=== PATIENT | male | born 1980 | race Caucasian/White ===

== ENCOUNTER 2016-10-01 18:48 | Emergency (ER) | payer MEDICAID ==
--- NOTE | 2016-10-01 19:17 | Emergency Department Record ---
History of Present Illness - General Chief Complaint: Cough Stated Complaint: FATIGUE,SINUS/CHEST CONGESTION,COUGH Time Seen by Provider: 10/01/16 19:14 Source: Patient Mode of Arrival: Ambulatory Limitations: No limitations - History of Present Illness Initial Comments: 35 yo male presents to ED with a CC of sinus congestion and cough symptoms 2 weeks ago, resolved, but then worsened last night. Patient reports finishing Zithromax 1.5 weeks ago, started having cough and body aches last night associated with sinus congestion symptoms. Patient denies health problems at his baseline. MD Complaint: Cough, Nasal congestion Onset/Timin -: Week(s) Severity: Mild Quality: Aching Consistency: Other Improves With: Nothing Worsens With: Nothing Context: Sick contacts Associated Symptoms: Cough, Sore throat Treatments Prior to Arrival: Antibiotics - Related Data Previous Rx's Medication Instructions Recorded Oseltamivir Phosphate [Tamiflu] 75 mg PO BID #10 capsule 10/01/16 Allergies Allergy/AdvReac Type Severity Reaction Status Date / Time No Known Drug Allergies Allergy Unverified 09/13/16 08:21 Travel Screening - Travel/Exposure Within Last 30 Days Have you traveled within the last 30 days?: No - Travel/Exposure Within Last Year Have you traveled outside the [place] in the last year?: No - Additonal Travel Details Have you been exposed to anyone with a communicable illness?: No - Travel Symptoms Symptom Screening: None Review of Systems Constitutional: Reports: Fever. Denies: Chills, Malaise, Night sweats Eyes: Denies: Eye discharge, Eye pain ENT: Reports: Congestion, Throat pain. Denies: Ear pain, Epistaxis Respiratory: Reports: Cough. Denies: Dyspnea Cardiovascular: Denies: Chest pain, Dyspnea on exertion Endocrine: Denies: Fatigue, Heat or cold intolerance Gastrointestinal: Denies: Nausea, Vomiting Genitourinary: Denies: Incontinence, Retention Musculoskeletal: Denies: Arthralgia, Back pain Skin: Denies: Bruising Neurological: Denies: Abnormal gait, Confusion, Seizure Psychiatric: Denies: Anxiety Hematological/Lymphatic: Denies: Anemia, Blood Clots Past Medical History - SOCIAL HISTORY Smoking Status: Never smoker Alcohol Use: None Drug Use: None - RESPIRATORY Hx Respiratory Disorders: No - CARDIOVASCULAR Hx Cardio Disorders: No - NEURO Hx Neuro Disorders: No - GI Hx GI Disorders: No - Hx Genitourinary Disorders: No - ENDOCRINE Hx Endocrine Disorders: No - MUSCULOSKELETAL Hx Musculoskeletal Disorders: No - PSYCH Hx Psych Problems: No - HEMATOLOGY/ONCOLOGY Hx Hematology/Oncology Disorders: No Family Medical History Any Significant Family History?: No Physical Exam - General General Appearance: Alert, Oriented x3, Cooperative, No acute distress Limitations: No limitations - Head Head exam: Atraumatic, Normocephalic, Normal inspection Head exam detail: negative: Abrasion, Contusion, Sinclair's sign, General tenderness, Hematoma, Laceration - Eye Eye exam: Normal appearance. negative: Conjunctival injection, Periorbital swelling, Periorbital tenderness, Scleral icterus - ENT Ear exam: negative: Auricular hematoma, Auricular trauma Nasal Exam: negative: Discharge, Dried blood, Foreign body Mouth exam: negative: Drooling, Laceration, Muffled voice, Tongue elevation Throat exam: Tonsillar erythema. negative: Tonsillomegaly, Tonsillar exudate, R peritonsillar mass, L peritonsillar mass - Neck Neck exam: Normal inspection. negative: Meningismus, Tenderness - Respiratory Respiratory exam: Normal lung sounds bilaterally. negative: Rales, Respiratory distress, Rhonchi, Stridor - Cardiovascular Cardiovascular Exam: Normal rhythm, Normal heart sounds, Tachycardia - GI/Abdominal GI/Abdominal exam: Soft - Rectal Rectal exam: Deferred - exam: Deferred - Extremities Extremities exam: Normal inspection. negative: Pedal edema, Tenderness - Back Back exam: Denies: CVA tenderness (R), CVA tenderness (L) - Neurological Neurological exam: Alert, Normal gait, Oriented X3 - Psychiatric Psychiatric exam: Normal affect, Normal mood - Skin Skin exam: Normal color. negative: Abrasion Type of lesion: negative: abrasion Course Vital Signs 10/01/16 19:01 Temperature 99.9 F H Pulse Rate 125 H Respiratory 20 Rate Blood Pressure 137/78 Pulse Ox 98 - Reevaluation(s) Reevaluation #1: 10/01/16 19:41 Patient is positive for influenza B, will initiate Tamiflu with instructions for follow-up in 3-5 days with patient's PCP. Disposition Disposition: Discharge Clinical Impression: Influenza Disposition: Home, Self-Care Condition: (2) Stable Instructions: Influenza (ED) Additional Instructions: Return to ED if your symptoms worsen or if you have any concerns. Tamilflu as directed. Follow-up with your family doctor in 3-5 days as directed. Prescriptions: Oseltamivir Phosphate [Tamiflu] 75 mg PO BID #10 capsule Forms: Patient Portal Access Time of Disposition: 19:42
[2016-10-01 19:33] LABS: INFLUENZA A NEGATIVE (NEGATIVE); INFLUENZA B POSITIVE (NEGATIVE)
[2016-10-01] MEDS ORDERED: OSTELTAMIVIR 75 MG CAP PO ONE (19:42)
== END 2016-10-01 19:59 | disposition home or self-care (01) ==
LOC: ER 18:48
DX: J10.1 Influenza due to other identified influenza virus with other respiratory manifestations (principal)
CPT/HCPCS: 87400; 99282

== ENCOUNTER 2017-05-06 18:51 | Emergency (ER) | payer MEDICAID ==
[2017-05-06] MEDS ORDERED: ACETAMINOPHEN 325 MG TAB PO ONE (19:52)
[2017-05-06] MEDS ORDERED: 0.9 % SODIUM CHLORIDE 1,000 ML BAG IV ONE ×2 (19:52→21:01)
[2017-05-06] MEDS ORDERED: ONDANSETRON HCL IV 4 MG/2 ML VIAL IV ONE (19:52)
[2017-05-06 20:00] LABS: HEMATOCRIT 44.1 % (42.0-52.0); HEMOGLOBIN 16.3 gm/dl (14.0-18.0); MEAN CELL VOLUME 81.2 fl (81-97); MEAN PLATELET VOLUME 10.7 fl (7.4-10.4); PLATELET COUNT 196 K/uL (130-400); RED BLOOD COUNT 5.43 M/uL (4.40-5.70); RED CELL DISTRIBUTION WIDTH 12.3 % (11.5-14.5); WHITE BLOOD COUNT W/O DIFF 4.4 K/uL (4.2-12.2)
--- NOTE | 2017-05-06 20:09 | Emergency Department Record ---
History of Present Illness - General Chief complaint: Weakness Stated complaint: HEAT EXHAUSTION? Time Seen by Provider: 05/06/17 19:49 Source: Patient Mode of Arrival: Ambulatory Limitations: No limitations - History of Present Illness Initial comments: The patient is here due to multiple episodes of diarrhea over the last 36 hours. He states he has felt ill for about 2 days. It started 2 days ago after working in the heat all day but then yesterday he developed frequent loose watery stools. He had over 20 stools yesterday but only 2 today. The patient denies any abdominal pain or bleeding but he is having mild nausea. Today he only has had 2 loose watery stools. The patient denies any AVALOS or neck pain but does have mild nausea at times. 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 MD Complaint: Generalized weakness Onset/Timin -: Days(s) Associated Symptoms: Diaphoresis, Nausea/vomiting, Other (diarrhea.) - Dave Coma Scale Eye Response: (4) Open spontaneously Motor Response: (6) Obeys commands Verbal Response: (5) Oriented [place] Total: 15 - Related Data Previous Rx's Medication Instructions Recorded Oseltamivir Phosphate [Tamiflu] 75 mg PO BID #10 capsule 10/01/16 Nitazoxanide [Alinia] 500 mg PO BID #6 tablet 05/06/17 Ondansetron [Zofran Odt] 4 mg SL .Q4-6H PRN #12 tab.rapdis 05/06/17 Allergies Allergy/AdvReac Type Severity Reaction Status Date / Time No Known Drug Allergies Allergy Unverified 09/13/16 08:21 Travel Screening - Travel/Exposure Within Last 30 Days Have you traveled within the last 30 days?: No - Travel Symptoms Symptom Screening: Fever (GT 100.4), Headache, Weakness, Diarrhea Review of Systems Constitutional: Denies: Chills, Fever Eyes: Denies: Eye discharge ENT: Denies: Congestion, Dental pain Past Medical History - SOCIAL HISTORY Smoking Status: Never smoker Alcohol Use: None Drug Use: None - RESPIRATORY Hx Respiratory Disorders: No - CARDIOVASCULAR Hx Cardio Disorders: No - NEURO Hx Neuro Disorders: No - GI Hx GI Disorders: No - Hx Genitourinary Disorders: No - ENDOCRINE Hx Endocrine Disorders: No - MUSCULOSKELETAL Hx Musculoskeletal Disorders: No - PSYCH Hx Psych Problems: No - HEMATOLOGY/ONCOLOGY Hx Hematology/Oncology Disorders: No Family Medical History Any Significant Family History?: Yes Physical Exam - General General Appearance: Alert, Oriented x3, Cooperative, No acute distress - Head Head exam: Atraumatic, Normocephalic, Normal inspection - Eye Eye exam: Normal appearance, PERRL - ENT Throat exam: Normal inspection. negative: Tonsillar erythema, Tonsillar exudate - Neck Neck exam: Normal inspection, Full ROM. negative: Meningismus (The neck is very supple.), Tenderness - Respiratory Respiratory exam: Normal lung sounds bilaterally. negative: Respiratory distress - Cardiovascular Cardiovascular Exam: Regular rate, Normal rhythm, Normal heart sounds - GI/Abdominal GI/Abdominal exam: Soft, Normal bowel sounds. negative: Tenderness - Extremities Extremities exam: Normal inspection, Full ROM, Normal capillary refill. negative: Tenderness - Neurological Neurological exam: Alert, Normal gait. negative: Abnormal gait, Motor sensory deficit Course Vital Signs 05/06/17 19:34 Temperature 100.2 F H Pulse Rate 84 Respiratory 18 Rate Blood Pressure 136/81 Pulse Ox 98 - Reevaluation(s) Reevaluation #1: The patient is doing better. He denies any pain or discomfort and has had one stool here in the ER. He is feeling better after the 2 liters of IVF. 05/06/17 21:27 Reevaluation #2: The patient is doing much better at this time. I did discuss the positive Cryptosporidium infection with the patient and the need for F/U if not better in 3 days. 05/06/17 22:12 Medical Decision Making - Data Complexity MDM Data: Labs Ordered and/or Reviewed - Lab Data Result diagrams: 05/06/17 19:40 05/06/17 19:40 Lab Results 05/06/17 Range/Units 19:40 WBC 4.4 (4.2-12.2) K/uL RBC 5.43 (4.40-5.70) M/uL Hgb 16.3 (14.0-18.0) gm/dl Hct 44.1 (42.0-52.0) % MCV 81.2 (81-97) fl MCH 30.0 (27-33) pg MCHC 37.0 H (32-36) g/dl RDW 12.3 (11.5-14.5) % Plt Count 196 (130-400) K/uL MPV 10.7 H (7.4-10.4) fl Neutrophils % 80.0 (47-80) % Band Neutrophils % 0.0 (0-5) % Eosinophils % Not Reportable Basophils % Not Reportable Lymphocytes 15.0 L (16-45) % Monocytes 5.0 (0-9) % Basophils 0.0 (0-6) % Eosinophil Count 0.0 (0-6) % Disposition Disposition: Discharge Clinical Impression: Cryptosporidial gastroenteritis Disposition: Home, Self-Care Condition: (1) Good Instructions: Traveler's Diarrhea (ED) Additional Instructions: Please drink plenty of fluids and use the Zofran for nausea and use Tylenol for fever. Please take the Nitazoxanide as directed. Please see your PCP in 3 days if not better and return to the ER for any high fever, increased diarrhea, any abdominal pain or bleeding. Prescriptions: Nitazoxanide [Alinia] 500 mg PO BID #6 tablet Ondansetron [Zofran Odt] 4 mg SL .Q4-6H PRN #12 tab.rapdis PRN Reason: Nausea Forms: Patient Portal Access Time of Disposition: 22:16 Quality - Quality Measures Quality Measures: N/A - Blood Pressure Screening View Details: Yes Does Patient Have Any of the Following: No Blood Pressure Classification: Pre-Hypertensive BP Reading Systolic Measurement: 136 Diastolic Measurement: 81 Screening for High Blood Pressure: < Pre-Hypertensive BP, F/U Documented > [ G8950] Pre-Hypertensive Follow-up Interventions: Referral to alternative/primary care provider.
[2017-05-06 20:16] LABS: ALBUMIN 4.3 g/dL (4.0-5.0); ALKALINE PHOSPHATASE 54 U/L (40-129); ALT/SGPT 31 U/L (<41); AST/SGOT 53 U/L (10.0-50.0); BILIRUBIN,DIRECT 0.3 mg/dL (0-0.3); BLOOD UREA NITROGEN 12 mg/dL (6-20); EST GLOMERULAR FILTRATION RATE > 60 mL/min; GLUCOSE,RANDOM 110 mg/dL (74-109); TOTAL PROTEIN 6.9 g/dL (6.6-8.7)
[2017-05-06 21:01] LABS: URINE APPEARANCE CLEAR; URINE BILIRUBIN SMALL (NEGATIVE); URINE BLOOD NEGATIVE (NEGATIVE); URINE COLOR YELLOW; URINE GLUCOSE (UA) NEGATIVE (NEGATIVE); URINE KETONE TRACE (NEGATIVE); URINE LEUKOCYTE ESTERASE NEGATIVE (NEGATIVE); URINE NITRITE NEGATIVE (NEGATIVE)
[2017-05-06 22:02] LABS: CRYPTOSPORIDIUM PARVUM ANTIGEN DETECTED (NOT DETECT); GIARDIA LAMBLIA ANTIGEN NOT DETECTED (NOT DETECT)
== END 2017-05-06 22:25 | disposition home or self-care (01) ==
LOC: ER 18:51
DX: A07.2 Cryptosporidiosis (principal); R11.2 Nausea with vomiting, unspecified; R53.1 Weakness; R61 Generalized hyperhidrosis
CPT/HCPCS: 99284 ×2; 96374; 96361; 87329; 80076; 80048; 89055; 81003; 87427; 85027; J2405; J7030

== ENCOUNTER 2018-06-21 20:55 | Emergency (ER) | payer MEDICAID ==
--- NOTE | 2018-06-21 21:37 | Emergency Department Record ---
History of Present Illness - General Chief Complaint: Laceration(s) Stated Complaint: LACERATION ON LT THUMB Time Seen by Provider: 06/21/18 21:36 Source: Patient Mode of Arrival: Ambulatory - History of Present Illness Initial Commments: Pt right hand dominate with laceration with box knife to left thumb dorsal at home. Accidental. No numbness or weakness. Onset/Timin -: Minutes(s) Place: Home Context: Accidental, Sharp object use Associated Symptoms: None - Evans Coma Scale Eye Response: (4) Open spontaneously Motor Response: (6) Obeys commands Verbal Response: (5) Oriented Dave Total: 15 - Related Data Hx Tetanus Toxoid Vaccination: Yes Patient Tetanus UTD (within 5 yrs): Yes Home Medications Medication Instructions Recorded Confirmed Last Taken No Home Med [NO HOME MEDS] 06/21/18 06/21/18 Unknown Allergies Allergy/AdvReac Type Severity Reaction Status Date / Time No Known Drug Allergies Allergy Verified 06/21/18 21:02 Travel Screening - Travel/Exposure Within Last 30 Days Have you traveled within the last 30 days?: No - Travel/Exposure Within Last Year Have you traveled outside the [place] in the last year?: No - Additonal Travel Details Have you been exposed to anyone with a communicable illness?: No - Travel Symptoms Symptom Screening: None Review of Systems Constitutional: Denies: Chills, Fever Eyes: Denies: Eye discharge, Eye pain ENT: Denies: Congestion, Dental pain Respiratory: Denies: Cough, Hemoptysis Cardiovascular: Denies: Arrhythmia, Chest pain Endocrine: Denies: Fatigue Gastrointestinal: Denies: Abdominal pain Musculoskeletal: Denies: Arthralgia, Back pain Skin: Denies: Bruising Neurological: Denies: Abnormal gait Psychiatric: Denies: Anxiety Hematological/Lymphatic: Denies: Anemia Past Medical History - SOCIAL HISTORY Smoking Status: Never smoker Alcohol Use: None Drug Use: None - RESPIRATORY Hx Respiratory Disorders: No - CARDIOVASCULAR Hx Cardio Disorders: No - NEURO Hx Neuro Disorders: No - GI Hx GI Disorders: No - Hx Genitourinary Disorders: No - ENDOCRINE Hx Endocrine Disorders: No - MUSCULOSKELETAL Hx Musculoskeletal Disorders: No - PSYCH Hx Psych Problems: No - HEMATOLOGY/ONCOLOGY Hx Hematology/Oncology Disorders: No Family Medical History Any Significant Family History?: No Physical Exam - General General Appearance: Alert, Oriented x3, Cooperative - Head Head exam: Atraumatic - Eye Eye exam: Normal appearance - ENT ENT exam: Normal exam - Neck Neck exam: Normal inspection. negative: Tenderness - Respiratory Respiratory exam: Normal lung sounds bilaterally. negative: Wheezes - Cardiovascular Cardiovascular Exam: Regular rate, Normal rhythm. negative: Tachycardia Peripheral Pulses: 2+: Radial (R), Radial (L) - GI/Abdominal GI/Abdominal exam: Soft. negative: Tenderness - Extremities Image of Hand: 1 - 4 cm linear lac into deep sub cutaneous tissue without FB or tendon/nerve/ vascular injury. FULL ROM against resistance into flexion and extension. 2 pt sensation intact distally. - Back Back exam: Reports: Normal inspection - Neurological Neurological exam: Alert, Normal gait, Oriented X3. negative: Motor sensory deficit - Psychiatric Psychiatric exam: Normal affect, Normal mood - Skin Skin exam: Normal color. negative: Rash Course Vital Signs 06/21/18 21:02 Temperature 97.6 F Pulse Rate 67 Respiratory 12 Rate Blood Pressure 149/89 Pulse Ox 99 - Reevaluation(s) Reevaluation #1: 06/21/18 21:40 teatnus UTD sutured and home Disposition Disposition: Discharge Clinical Impression: Laceration of left thumb Disposition: Home, Self-Care Return To Work/School Note Provided: Yes Condition: (1) Good Additional Instructions: sutures out 10 days Forms: Patient Portal Access Time of Disposition: 21:37 Quality - Quality Measures Quality Measures: N/A - Blood Pressure Screening Does Patient Have Any of the Following: No Blood Pressure Classification: Pre-Hypertensive BP Reading Systolic Measurement: 149 Diastolic Measurement: 89 Screening for High Blood Pressure: < Pre-Hypertensive BP, F/U Documented > [ G8950] Pre-Hypertensive Follow-up Interventions: Follow-up with rescreen every year. Laceration - Other - Time Out Informed consent:: Informed consent obtained Confirmed first & last name, , procedure, correct site?: Yes Start Date:: 06/21/18 Start Time:: 21:41 - Location Location of laceration:: Left, Dorsal Laceration located on:: Finger (thumb) Laceration digit detail:: 1st Length of laceration:: 4 Length of laceration:: cm - Clean and Prep Laceration cleaning method:: Cleansed, Copious Irrigation Laceration cleaning agent:: Normal Saline - Local Anesthetic Lidocaine used:: 1% Lidocaine dose:: 3 mL - Procedural Detail Foreign body in the wound?: No Undermining was preformed?: No Stent applied?: No Portales applied?: No Skin suture pattern:: Interrupted Suture material/size:: 4-0: Prolene Number of skin sutures:: 6 - Post Procedural Detail Complications:: No Procedure Tolerated by Patient:: Well
== END 2018-06-21 21:45 | disposition home or self-care (01) ==
LOC: ER 20:55
DX: S61.012A Laceration without foreign body of left thumb without damage to nail, initial encounter (principal); W26.0XXA Contact with knife, initial encounter; Y92.009 Unspecified place in unspecified non-institutional (private) residence as the place of occurrence of the external cause
CPT/HCPCS: 12042; 99283

== ENCOUNTER 2018-06-25 14:23 | Emergency (ER) | payer MEDICAID ==
--- NOTE | 2018-06-25 14:37 | Emergency Department Record ---
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 Eye feels scratchy and tears a lot. Pt has not see a doctor for this issue. No change in vision. No lid swelling , no discharge from eye. No AVALOS. Onset/Timin -: Days(s) Onset Description: Gradual Location: Right eye Place: Home, Street/outdoors If Injury: Other Eye Symptoms: Pain, Redness Consistency: Constant Treatments Prior to Arrival: None - Related Data Hx Tetanus Toxoid Vaccination: Yes Allergies Allergy/AdvReac Type Severity Reaction Status Date / Time No Known Drug Allergies Allergy Verified 06/21/18 21:02 Travel Screening - Travel/Exposure Within Last 30 Days Have you traveled within the last 30 days?: No Review of Systems Constitutional: Denies: Chills, Fever, Night sweats Eyes: Reports: As per HPI, Eye pain, Photophobia. Denies: Eye discharge, Vision change ENT: Denies: Congestion, Dental pain Respiratory: Denies: Cough, Dyspnea Cardiovascular: Denies: Chest pain, Palpitations Endocrine: Denies: Fatigue Gastrointestinal: Denies: Abdominal pain, Nausea, Vomiting Musculoskeletal: Denies: Arthralgia Skin: Denies: Bruising Neurological: Denies: Confusion, Headache, Numbness Psychiatric: Denies: Anxiety Hematological/Lymphatic: Denies: Anemia Past Medical History - SOCIAL HISTORY Smoking Status: Never smoker - RESPIRATORY Hx Respiratory Disorders: No - CARDIOVASCULAR Hx Cardio Disorders: No - NEURO Hx Neuro Disorders: No - GI Hx GI Disorders: No - Hx Genitourinary Disorders: No - ENDOCRINE Hx Endocrine Disorders: No - MUSCULOSKELETAL Hx Musculoskeletal Disorders: No - PSYCH Hx Psych Problems: No - HEMATOLOGY/ONCOLOGY Hx Hematology/Oncology Disorders: No Family Medical History Any Significant Family History?: No Physical Exam - General General Appearance: Alert, Oriented x3, Cooperative, Mild distress - Head Head exam: Atraumatic - Eye Eye exam: PERRL, Conjunctival injection, EOMI. negative: Nystagmus, Periorbital swelling, Periorbital tenderness (O.D. with injection and a anterior central conreal FB visualized . Anterior chanber clear without hyphema ) - ENT ENT exam: Mucous membranes moist, Normal external ear exam, Normal orophraynx, TM's normal bilaterally - Neck Neck exam: Normal inspection, Full ROM - Respiratory Respiratory exam: Normal lung sounds bilaterally. negative: Wheezes - Cardiovascular Cardiovascular Exam: Regular rate, Normal rhythm, Normal heart sounds - GI/Abdominal GI/Abdominal exam: Soft. negative: Tenderness - Extremities Extremities exam: Normal inspection (healing lac with sutures to left thumb. Nos igns infection. ) - Back Back exam: Reports: Normal inspection - Neurological Neurological exam: Alert, Normal gait, Oriented X3 - Psychiatric Psychiatric exam: Anxious, Normal affect - Skin Skin exam: Normal color. negative: Rash Course Vital Signs 06/25/18 14:25 Temperature 98.1 F Pulse Rate 67 Respiratory 18 Rate Blood Pressure 146/88 Pulse Ox 98 - Reevaluation(s) Reevaluation #1: 06/25/18 16:38 Seen and exam with slit lamp with FB to central OD cornea. Ant chamber clear, no flare. Tetracaine to OD with relief of dicomfort. Flouri strip without abrasion. Attempt to remove FB from corena unsuccessful as pt unable to cooperate and stay still. Discussed with Opho and he will see pt in office today RAYNA. Pt aware and sent to office from ED> Disposition Disposition: Discharge Clinical Impression: Corneal foreign body Disposition: Home, Self-Care Condition: (1) Good Instructions: Eye Foreign Body (ED) Additional Instructions: Go to Dr. José Luis fatima office now. Referrals: SON CHILDS [MEDICAL DOCTOR] - Forms: Patient Portal Access Quality - Quality Measures Quality Measures: N/A - Blood Pressure Screening Does Patient Have Any of the Following: No Blood Pressure Classification: Pre-Hypertensive BP Reading Systolic Measurement: 146 Diastolic Measurement: 88 Screening for High Blood Pressure: < Pre-Hypertensive BP, F/U Documented > [ G8950] Pre-Hypertensive Follow-up Interventions: Follow-up with rescreen every year.
[2018-06-25] MEDS ORDERED: PROPARACAINE HCL OPTH 15ML BTL OPTH ONE ×2 (14:56→14:57)
[2018-06-25] MEDS ORDERED: EYE IRRIGATION SOLU. (SOD BOR/BORIC AC/H20/NACL) 118ML BTL OPTH ONE (15:02)
[2018-06-25] MEDS ORDERED: SULFACETAMIDE SODIUM 15ML BTL OPTH ONE (15:03)
== END 2018-06-25 15:23 | disposition home or self-care (01) ==
LOC: ER 14:23
DX: T15.01XA Foreign body in cornea, right eye, initial encounter (principal); W22.8XXA Striking against or struck by other objects, initial encounter; Y93.K9 Activity, other involving animal care; Y92.71 Barn as the place of occurrence of the external cause
CPT/HCPCS: 99283

== ENCOUNTER 2018-09-08 22:58 | Emergency (ER) | payer MEDICAID ==
--- NOTE | 2018-09-08 23:12 | Emergency Department Record ---
History of Present Illness - General Chief complaint: ENT Stated complaint: fever,cough,runny nose Time Seen by Provider: 09/08/18 23:07 Source: Patient Mode of Arrival: Ambulatory Limitations: No limitations - History of Present Illness Initial comments: 37 yo male presents to ED for evaluation of runny noese, dry cough, and fever symptoms for the past 3-4 days. Patient denies health problems, but does report that his symptoms began after a slip and fall resulting in an injury to the right chest wall. Patient denies receiving an influenza vaccination this year as well. MD complaint: Other Onset/Timin -: Days(s) Severity: Moderate Consistency: Intermittent Improves with: NSAID Worsens with: None Context- Ear: Recent illness Associated Symptoms: Cough, Fever, Rhinorrhea - Related Data Allergies Allergy/AdvReac Type Severity Reaction Status Date / Time No Known Drug Allergies Allergy Verified 06/21/18 21:02 Review of Systems Constitutional: Reports: Fever. Denies: Chills, Malaise, Night sweats Eyes: Denies: Eye discharge, Eye pain ENT: Reports: Congestion. Denies: Ear pain, Epistaxis Respiratory: Reports: Cough. Denies: Dyspnea Cardiovascular: Denies: Chest pain, Dyspnea on exertion Endocrine: Denies: Fatigue, Heat or cold intolerance Gastrointestinal: Denies: Abdominal pain, Nausea Genitourinary: Denies: Frequency, Incontinence, Retention Musculoskeletal: Denies: Arthralgia, Back pain Skin: Denies: Bruising, Change in color Neurological: Denies: Abnormal gait, Confusion, Headache, Seizure Psychiatric: Denies: Anxiety Hematological/Lymphatic: Denies: Anemia, Blood Clots Past Medical History - SOCIAL HISTORY Smoking Status: Never smoker - RESPIRATORY Hx Respiratory Disorders: No - CARDIOVASCULAR Hx Cardio Disorders: No - NEURO Hx Neuro Disorders: No - GI Hx GI Disorders: No - Hx Genitourinary Disorders: No - ENDOCRINE Hx Endocrine Disorders: No - MUSCULOSKELETAL Hx Musculoskeletal Disorders: No - PSYCH Hx Psych Problems: No - HEMATOLOGY/ONCOLOGY Hx Hematology/Oncology Disorders: No Physical Exam - General General Appearance: Alert, Oriented x3, Cooperative, Mild distress Limitations: No limitations - Head Head exam: Atraumatic, Normocephalic, Normal inspection Head exam detail: negative: Abrasion, Contusion, Sinclair's sign, General tenderness, Hematoma, Laceration - Eye Eye exam: Normal appearance, Conjunctival injection. negative: Periorbital swelling, Periorbital tenderness, Scleral icterus - ENT Ear exam: negative: Auricular hematoma, Auricular trauma Nasal Exam: negative: Active bleeding, Discharge, Dried blood, Foreign body Mouth exam: negative: Drooling, Laceration, Muffled voice, Tongue elevation Throat exam: negative: Tonsillar erythema, Tonsillomegaly, R peritonsillar mass , L peritonsillar mass - Neck Neck exam: Normal inspection. negative: Meningismus, Tenderness - Respiratory Respiratory exam: Normal lung sounds bilaterally. negative: Rales, Respiratory distress, Rhonchi, Stridor - Cardiovascular Cardiovascular Exam: Regular rate, Normal rhythm, Normal heart sounds - GI/Abdominal GI/Abdominal exam: Soft. negative: Rebound, Rigid, Tenderness - Rectal Rectal exam: Deferred - exam: Deferred - Extremities Extremities exam: Normal inspection. negative: Calf tenderness, Pedal edema, Tenderness - Back Back exam: Denies: CVA tenderness (R), CVA tenderness (L) - Neurological Neurological exam: Alert, Normal gait, Oriented X3 - Psychiatric Psychiatric exam: Normal affect, Normal mood - Skin Skin exam: Normal color. negative: Abrasion Type of lesion: negative: abrasion Course Vital Signs 09/08/18 23:04 Temperature 98.6 F Pulse Rate [ 93 H Pulse Ox Probe] Respiratory 20 Rate Blood Pressure 132/86 [Left Arm] Pulse Ox 97 - Reevaluation(s) Reevaluation #1: 09/08/18 23:31 Influenza: Negative CXR: No acute process Patient was updated on all results, symptoms appear c/w viral URI Recommended continued symptomatic care at home as directed. Disposition Disposition: Discharge Clinical Impression: URI (upper respiratory infection) Qualifiers: URI type: unspecified URI Qualified Code(s): J06.9 - Acute upper respiratory infection, unspecified Disposition: Home, Self-Care Condition: (2) Stable Instructions: Upper Respiratory Infection (ED) Additional Instructions: Return to ED if your symptoms worsen or if you have any concerns. Follow-up with your family doctor in 3-5 days as directed. Forms: Patient Portal Access Time of Disposition: 23:32 Quality - Quality Measures Quality Measures: N/A - Blood Pressure Screening Does Patient Have Any of the Following: No Blood Pressure Classification: Pre-Hypertensive BP Reading Systolic Measurement: 132 Diastolic Measurement: 86 Screening for High Blood Pressure: < Pre-Hypertensive BP, F/U Documented > [ [id number]] Pre-Hypertensive Follow-up Interventions: Referral to alternative/primary care provider.
[2018-09-08 23:30] LABS: INFLUENZA A NEGATIVE (NEGATIVE); INFLUENZA B NEGATIVE (NEGATIVE)
--- NOTE | 2018-09-10 08:47 | RADIOLOGY REPORT ---
EXAM: CHEST, TWO VIEWS HISTORY: RIGHT LOWER RIB INJURY THREE DAYS PRIOR, COUGH, CONGESTION, FEVER. TECHNIQUE: Two views of the chest were obtained. Comparison: None. FINDINGS: The cardiac silhouette is within normal size limits. The pulmonary vasculature is nondilated. No focal pulmonary consolidation, pleural effusion or pneumothorax. No definite rib fracture is seen. IMPRESSION: NO ACUTE CHEST FINDINGS. JOB NUMBER: [id number] MTDD
== END 2018-09-08 23:38 | disposition home or self-care (01) ==
LOC: ER 22:58
DX: J06.9 Acute upper respiratory infection, unspecified (principal); R05 Cough
CPT/HCPCS: 71046; 87400; 99283

== ENCOUNTER 2019-07-03 08:31 | Emergency (ER) | payer MEDICAID ==
--- NOTE | 2019-07-03 08:49 | Emergency Department Record ---
History of Present Illness - General Chief Complaint: Ankle/Foot Injury Stated Complaint: LEFT ANKLE INJURY Time Seen by Provider: 07/03/19 08:45 Source: Patient Mode of Arrival: Wheelchair Limitations: No limitations - History of Present Illness Initial Comments: Pt to ED after injury last PM at home. Missed step coming off a short ladder and rolled his left ankle outward. Fell to the ground but denies other injuries. No hip, neck, head injury. Was able to walk and bear weight last night but this AM increased swelling and hurts to bear weight. No hx similar. Onset/Timin -: Hour(s) Type of Injury: Eversion Place: Home Severity: Mild Severity scale (1-10): 3 Improves With: Cold therapy, NSAID Worsens With: Weight bearing Context: Fall Associated Symptoms: Unable to bear weight Treatments Prior to Arrival: Cold therapy - Related Data Previous Rx's Medication Instructions Recorded Ibuprofen [Motrin] 800 mg PO Q8H #40 tab 07/03/19 Allergies Allergy/AdvReac Type Severity Reaction Status Date / Time No Known Drug Allergies Allergy Verified 07/03/19 08:43 Travel Screening - Travel/Exposure Within Last 30 Days Have you traveled within the last 30 days?: No - Travel/Exposure Within Last Year Have you traveled outside the [place] in the last year?: No - Additonal Travel Details Have you been exposed to anyone with a communicable illness?: No - Travel Symptoms Symptom Screening: None Review of Systems Constitutional: Denies: Chills, Fever Eyes: Denies: Eye discharge, Eye pain ENT: Denies: Congestion Respiratory: Denies: Cough Cardiovascular: Denies: Arrhythmia, Chest pain Endocrine: Denies: Fatigue Gastrointestinal: Denies: Abdominal pain, Nausea Musculoskeletal: Denies: Back pain Skin: Denies: Bruising, Rash Neurological: Denies: Headache, Tingling, Weakness Psychiatric: Denies: Anxiety Hematological/Lymphatic: Denies: Anemia Past Medical History - SOCIAL HISTORY Smoking Status: Never smoker Alcohol Use: None Drug Use: None - RESPIRATORY Hx Respiratory Disorders: No - CARDIOVASCULAR Hx Cardio Disorders: No - NEURO Hx Neuro Disorders: No - GI Hx GI Disorders: No - Hx Genitourinary Disorders: No - ENDOCRINE Hx Endocrine Disorders: No - MUSCULOSKELETAL Hx Musculoskeletal Disorders: No - PSYCH Hx Psych Problems: No - HEMATOLOGY/ONCOLOGY Hx Hematology/Oncology Disorders: No Family Medical History Any Significant Family History?: No Family Hx Comment (NOT TO BE USED IN PLACE OF ITEMS BELOW): unknown Physical Exam - General General Appearance: Alert, Oriented x3, Cooperative, No acute distress - Head Head exam: Atraumatic, Normal inspection - Eye Eye exam: PERRL - ENT ENT exam: Mucous membranes moist - Neck Neck exam: Normal inspection - Respiratory Respiratory exam: Normal lung sounds bilaterally. negative: Respiratory distress - Cardiovascular Cardiovascular Exam: Regular rate. negative: Tachycardia Peripheral Pulses: 2+: Dorsalis Pedis (R), Dorsalis Pedis (L) - GI/Abdominal GI/Abdominal exam: Soft. negative: Tenderness - Extremities Extremities exam: Joint swelling (left ankle tender posterior and anterior distal fib lateral. No prox fib pains no 5th MT pain. ), Tenderness - Back Back exam: Reports: Normal inspection - Neurological Neurological exam: Abnormal gait, Alert, Oriented X3 - Psychiatric Psychiatric exam: Normal affect, Normal mood - Skin Skin exam: Normal color. negative: Rash Course Vital Signs 07/03/19 08:37 Temperature 97.7 F Pulse Rate 96 H Respiratory 20 Rate Blood Pressure 141/91 Pulse Ox 98 - Reevaluation(s) Reevaluation #1: 07/03/19 09:08 Xray neg. air splint left ankle. Discussed treatment and plan. agrees. Medical Decision Making - Data Complexity MDM Data: X-Ray Ordered and/or Reviewed - Radiology Data Radiology results: Image reviewed -: Radiology Exam Interpreted by Myself no fx Disposition Disposition: Discharge Clinical Impression: Left ankle sprain Qualifiers: Encounter type: initial encounter Involved ligament of ankle: tibiofibular ligament Qualified Code(s): S93.432A - Sprain of tibiofibular ligament of left ankle, initial encounter Disposition: Home, Self-Care Condition: (1) Good Instructions: Ankle Sprain Exercises (GEN), Ankle Sprain (ED) Additional Instructions: Ice and elevate. Rest. Weigh bear to tolerance. Prescriptions: Ibuprofen [Motrin] 800 mg PO Q8H #40 tab Forms: Patient Portal Access Time of Disposition: 09:10 Quality - Quality Measures Quality Measures: N/A - Blood Pressure Screening Does Patient Have Any of the Following: No Blood Pressure Classification: Hypertensive Reading Systolic Measurement: 141 Diastolic Measurement: 91 Screening for High Blood Pressure: < Pre-Hypertensive BP, F/U Documented > [G6498] Pre-Hypertensive Follow-up Interventions: Follow-up with rescreen every year.
--- NOTE | 2019-07-03 09:13 | RADIOLOGY REPORT ---
EXAMINATION: Left Ankle, Complete Minimum Three Views EXAM DATE: 07/03/2019 9:09 AM TECHNIQUE: AP, lateral, and oblique INDICATION: injury pain COMPARISON: None ENCOUNTER: Initial FINDINGS: 3 views of the left ankle show no evidence of fracture or dislocation. Alignment is anatomic. Ankle m ortise is intact. Severe soft tissue swelling is present over the lateral malleolus. IMPRESSION: No fracture or dislocation. Dictated by: Preston Nunez MD on 07/03/2019 9:11 AM. .
== END 2019-07-03 09:25 | disposition home or self-care (01) ==
LOC: ER 08:31
DX: S93.432A Sprain of tibiofibular ligament of left ankle, initial encounter (principal); W11.XXXA Fall on and from ladder, initial encounter; Y92.009 Unspecified place in unspecified non-institutional (private) residence as the place of occurrence of the external cause
CPT/HCPCS: 99283